=== PATIENT | male | born 1940 ===

== ENCOUNTER 2021-08-17 11:00 | Inpatient (IN) | payer OTHER ==
[2021-08-17] MEDS ORDERED: ACID REDUCER20 M1 (13:48)
[2021-08-17] MEDS ORDERED: COZAAR100 MG (13:48)
[2021-08-17] MEDS ORDERED: ASA81 MG (13:48)
[2021-08-17] MEDS ORDERED: NEURONTIN (13:49)
[2021-08-25] MEDS ORDERED: BACTRIM DS TAB1 EACH PO (08:22)
[2021-08-25] MEDS ORDERED: XARELTO10 MG PO (08:22)
[2021-08-25] MEDS ORDERED: OXYC1TAB9 PO (08:22)
[2021-08-25] MEDS ORDERED: INTEGRA PLUS C1 EACH PO (08:22)
== END 2021-08-25 16:50 | DRG 470 ==
LOC: SURH 08-23 05:48 → O/R 08-23 05:48 → SURH 08-23 11:00
PROVIDERS: ADMIT Orthopaedic Surgery Sports Medicine; ATTEND Orthopaedic Surgery Sports Medicine
PROC: 0SRC0J9 Replacement of Right Knee Joint with Synthetic Substitute, Cemented, Open Approach (ICD-10-PCS; principal; 2021-08-23 15:15)
DX: M17.11 Unilateral primary osteoarthritis, right knee (principal); I11.0 Hypertensive heart disease with heart failure; I25.10 Atherosclerotic heart disease of native coronary artery without angina pectoris